=== PATIENT | male | born 1995 | race Caucasian/White ===

== ENCOUNTER 2018-01-10 14:56 | Inpatient (IN) | payer BC ==
[~2018-01-10] VITALS: Ht 177.8 cm; Wt 127.9 kg
[2018-01-10 14:57] VITALS: Ht 177.8 cm; Wt 127.9 kg
[2018-01-10 15:39] LABS: CARBON DIOXIDE 25.8 mmol/L (21-32); CHLORIDE SERUM 106 mmol/L (98-107); GFR1 > 60 mL/min; GLUCOSE SERUM 256 mg/dL (74-106); POTASSIUM SERUM 4.4 mmol/L (3.5-5.1); SODIUM SERUM 141 mmol/L (136-145)
[2018-01-10 15:43] LABS: BASOPHIL % 0.2 % (0-2); PLATELET COUNT 227 x10^3mcL (130-400); RED CELL DISTRIBUTION WIDTH 12.4 % (11.5-14.5)
[2018-01-10] MEDS ORDERED: ASPIR 8181 MG PO (16:47)
[2018-01-10] MEDS ORDERED: METFORMIN500 M1 PO (16:47)
[2018-01-10 19:38] VITALS: BP 119/55
[2018-01-10 19:45] LABS: CHOLESTEROL/HDL RATIO 3.7; MAGNESIUM 2.1 mg/dL (1.8-2.4); PHOSPHOROUS 3.5 mg/dL (2.5-4.9)
[2018-01-10 19:46] LABS: T3 TOTAL 1.13 ng/mL
[2018-01-10 19:55] LABS: FREE T4 1.01 ng/dL (0.76-1.46); FREE THYROXINE INDEX 2.9 ug/dL (1.4-4.5)
[2018-01-10 21:35] VITALS: BP 117/57
[2018-01-10 22:12] LABS: microscopic required? NO
[2018-01-10 22:16] LABS: UA SPECIFIC GRAVITY >=1.030 (1.005-1.035); urine erythrocyte NEGATIVE (NEGATIVE)
[2018-01-10 22:25] LABS: AMPHETAMINE QUAL UR NONE DETECTED (See below)
[2018-01-11 06:00] VITALS: BP 101/54
[2018-01-11 06:30] LABS: BASOPHIL % 0.3 % (0-2); PLATELET COUNT 211 x10^3mcL (130-400)
[2018-01-11 06:49] LABS: CALCIUM 8.2 mg/dL (8.5-10.1); CARBON DIOXIDE 24.8 mmol/L (21-32); CHLORIDE SERUM 108 mmol/L (98-107); CREATININE SERUM 0.8 mg/dL (0.7-1.3); GFR1 > 60 mL/min; GLUCOSE SERUM 114 mg/dL (74-106); PHOSPHOROUS 4.2 mg/dL (2.5-4.9); POTASSIUM SERUM 3.7 mmol/L (3.5-5.1); SODIUM SERUM 142 mmol/L (136-145)
[2018-01-11 08:41] VITALS: BP 118/42
[2018-01-11 13:26] VITALS: BP 105/66
[2018-01-11 13:27] VITALS: BP 105/66
== END 2018-01-11 14:40 | disposition home or self-care (01) | DRG 880 ==
LOC: ED 14:56 → DU 18:14
PROVIDERS: Emergency Medicine; Family Medicine; Internal Medicine
DX: F41.9 Anxiety disorder, unspecified (principal); R45.851 Suicidal ideations; Z79.82 Long term (current) use of aspirin; Z79.84 Long term (current) use of oral hypoglycemic drugs; E11.65 Type 2 diabetes mellitus with hyperglycemia; E66.9 Obesity, unspecified; Z68.34 Body mass index [BMI] 34.0-34.9, adult; Z71.3 Dietary counseling and surveillance; E78.1 Pure hyperglyceridemia
CPT/HCPCS: 82962; 83880; 84439; G0480; J3010; J7030; Q0092